=== PATIENT | female | born 1980 | race Caucasian/White ===

== ENCOUNTER → 2018-06-07 | Outpatient (CLI) | payer OTHER ==
[~2018-06-07] MED LIST: IOTHALAMATE MEG (CYSTO-CONRAY II) 250 ML VIAL BLADIN ONE
== END ==
LOC: FIMAGING 11:24
PROVIDERS: ATTEND Urology
PROC: 3E0K3KZ Introduction of Other Diagnostic Substance into Genitourinary Tract, Percutaneous Approach (ICD-10-PCS; principal; 2018-06-07)
DX: Z46.4 Encounter for fitting and adjustment of orthodontic device (principal); N99.72 Accidental puncture and laceration of a genitourinary system organ or structure during other procedure
CPT/HCPCS: Q9961